=== PATIENT | female | born 1995 | race American Indian/Alaskan Native ===

== ENCOUNTER 2017-08-30 16:18 | Emergency (ER) | payer MEDICAID, OTHER ==
[2017-08-30] MEDS ORDERED: Sodium Chloride 0.9% 1,000 ML IV STA (16:54)
--- NOTE | 2017-08-30 17:01 | ED PDOC ---
Arrival/HPI - General Time Seen by Provider: 08/30/17 16:47 Historian: Patient - History of Present Illness Narrative History of Present Illness (Text): 08/30/17 16:54 22yo female with PMHx of Asthma who present with intermittent crampy suprapubic abdominal pain with associated nausea and nonbloody/bilious vomiting x 4, since this morning. States her monthly period started 3days ago and she usually gets this pain intermittently with her period. She denies diarrhea, constipation, hematemesis, urinary symptoms, fever, chills, back pain. Past Medical History - Provider Review Nursing Documentation Reviewed: Yes - Psychiatric Hx Substance Use: No - Surgical History Hx Orthopedic Surgery: Yes (left knee) Family/Social History - Physician Review Nursing Documentation Reviewed: Yes Family/Social History: Unknown Family HX Smoking Status: Light Smoker < 10 Cigarettes Daily Hx Alcohol Use: Yes Hx Substance Use: No Allergies/Home Meds Allergies/Adverse Reactions: Allergies No Known Allergies Allergy (Verified 08/30/17 16:53) Review of Systems - Physician Review All systems were reviewed & negative as marked: Yes - Review of Systems Constitutional: Normal Eyes: Normal ENT: Normal Respiratory: Normal Cardiovascular: Normal Gastrointestinal: Abdominal Pain, Nausea, Vomiting. absent: Constipation, Diarrhea, Hematochezia, Hematemesis Genitourinary Female: Normal Musculoskeletal: Normal Skin: Normal Neurological: Normal Endocrine: Normal Hemo/Lymphatic: Normal Psychiatric: Normal Physical Exam Vital Signs Reviewed: Yes Vital Signs Temp Pulse Resp BP Pulse Ox 08/30/17 18:48 98.5 F 70 18 112/74 100 08/30/17 16:46 98.7 F 72 18 113/75 99 Temperature: Afebrile Blood Pressure: Normal Pulse: Regular Respiratory Rate: Normal Appearance: Positive for: Well-Appearing, Non-Toxic, Comfortable Pain Distress: None Mental Status: Positive for: Alert and Oriented X 3 - Systems Exam Head: Present: Atraumatic, Normocephalic Pupils: Present: PERRL Extroacular Muscles: Present: EOMI Conjunctiva: Present: Normal Mouth: Present: Moist Mucous Membranes Neck: Present: Normal Range of Motion Respiratory/Chest: Present: Clear to Auscultation, Good Air Exchange. No: Respiratory Distress, Accessory Muscle Use Cardiovascular: Present: Regular Rate and Rhythm, Normal S1, S2. No: Murmurs Abdomen: Present: Other (Soft). No: Tenderness, Distention, Peritoneal Signs, Rebound, Guarding, McBurney's Point Tender, Rovsing's Sign Present Back: Present: Normal Inspection Upper Extremity: Present: Normal Inspection. No: Cyanosis, Edema Lower Extremity: Present: Normal Inspection. No: Edema Neurological: Present: GCS=15, CN II-XII Intact, Speech Normal Skin: Present: Warm, Dry, Normal Color. No: Rashes Psychiatric: Present: Alert, Oriented x 3, Normal Insight, Normal Concentration Medical Decision Making ED Course and Treatment: 08/30/17 19:31 PT was comfortable in ED. Lab was unremarkable. She is currently menstruating accounting for the large blood in her UA. Result was DW the pt and she was DC home with Zofran/Ibuprofen - Lab Interpretations Lab Results: 08/30/17 17:09 08/30/17 17:09 Lab Results 08/30/17 17:10: Urine Color Yellow, Urine Appearance Turbid, Urine pH 8.0, Ur Specific Simms 1.025, Urine Protein Trace H, Urine Glucose (UA) Negative, Urine Ketones Trace H, Urine Blood Large H, Urine Nitrate Negative, Urine Bilirubin Negative, Urine Urobilinogen 0.2, Ur Leukocyte Esterase Negative, Urine RBC Tntc, Urine WBC 0 - 2, Ur Epithelial Cells 3 - 4, Urine Bacteria Trace 08/30/17 17:09: Sodium 140, Potassium 3.9, Chloride 106, Carbon Dioxide 25, Anion Gap 14, BUN 12, Creatinine 0.6 L, Est GFR ( Amer) > 60, Est GFR ( Non-Af Amer) > 60, Random Glucose 89, Calcium 10.1, Total Bilirubin 1.2, AST 26 , ALT 21, Alkaline Phosphatase 65, Total Protein 8.1, Albumin 4.7, Globulin 3.4 , Albumin/Globulin Ratio 1.4, Lipase 17 L 08/30/17 17:09: PT 13.3 H, INR 1.16 H, APTT 28.7 08/30/17 17:09: WBC 7.8, RBC 4.75, Hgb 10.7 L, Hct 33.4 L, MCV 70.3 L, MCH 22.5 L, MCHC 32.0, RDW 15.2 H, Plt Count 344, MPV 10.2, Gran % 83.8 H, Lymph % (Auto ) 11.7 L, Hays % (Auto) 4.0, Eos % (Auto) 0.4 L, Baso % (Auto) 0.1, Gran # 6.49 , Lymph # (Auto) 0.9 L, Hays # (Auto) 0.3, Eos # (Auto) 0.0, Baso # (Auto) 0.01 - Medication Orders Current Medication Orders: Discontinued Medications Famotidine (Pepcid) 20 mg IVP STAT STA Stop: 08/30/17 16:55 Last Admin: 08/30/17 17:11 Dose: 20 mg IVP Administration Document 08/30/17 17:11 OCS (Rec: 08/30/17 17:11 [id number] Charges for Administration # of IVP Administrations 1 Sodium Chloride (Sodium Chloride 0.9%) 1,000 mls @ 1,000 mls/hr IV .Q1H STA Stop: 08/30/17 17:53 Last Admin: 08/30/17 17:10 Dose: 1,000 mls/hr eMAR Start Stop Document 08/30/17 17:10 OCS (Rec: 08/30/17 17:11 [id number][facility] Intravenous Solution Start Date 08/30/17 Start Time 17:10 End Date 08/30/17 End time 18:10 Total Infusion Time 60 Ketorolac Tromethamine (Toradol) 30 mg IVP STAT STA Stop: 08/30/17 16:55 Last Admin: 08/30/17 17:11 Dose: 30 mg MAR Pain Assessment Document 08/30/17 17:11 OCS (Rec: 08/30/17 17:11 [id number][facility] Pain Reassessment Is this a pain reassessment? No Sleep Is patient sleeping during reassessment? No Presence of Pain Presence of Pain Yes Pain Scale Used Pain Scale Used Numeric Location Left, Right or Bilateral Bilateral Upper or Lower Lower Pain Location Body Site Abdomen Description Description Intermittent Intensity of Pain at present 10 Pain Behavior Irritability Aggravating Factors ADL's IVP Administration Document 08/30/17 17:11 OCS (Rec: 08/30/17 17:11 [id number]) Charges for Administration # of IVP Administrations 1 Ondansetron HCl (Zofran Inj) 4 mg IVP STAT STA Stop: 08/30/17 16:55 Last Admin: 08/30/17 17:11 Dose: 4 mg IVP Administration Document 08/30/17 17:11 OCS (Rec: 08/30/17 17:11 OCS [id number]) Charges for Administration # of IVP Administrations 1 Disposition/Present on Arrival - Present on Arrival Any Indicators Present on Arrival: No History of DVT/PE: No History of Uncontrolled Diabetes: No Urinary Catheter: No History Surgical Site Infection Following: None - Disposition Have Diagnosis and Disposition been Completed?: Yes Diagnosis: Dysmenorrhea, Vomiting Disposition: HOME/ ROUTINE Disposition Time: 18:10 Patient Plan: Discharge Condition: STABLE Discharge Instructions (ExitCare): Nausea and Vomiting, Adult, Menstrual Cramps (DC) Additional Instructions: Follow up with your doctor Return to ED for any new or worsening symptoms Prescriptions: Ibuprofen [Motrin Tab] 600 mg PO Q6 #15 tab Ondansetron ODT [Zofran ODT] 4 mg PO Q6 #7 odt Referrals: PCP,NO [Primary Care Provider] - Follow up with primary [facility] [place] - Follow up with primary Forms: [employer] (Djiboutian)
[2017-08-30 17:29] LABS: BASO # 0.01 K/mm3 (0.0-2.0); BASO % 0.1 % (0.0-3.0); EOS % 0.4 % (1.5-5.0); GRAN # 6.49 (1.4-6.5); GRAN % 83.8 % (50.0-68.0); HEMOGLOBIN 10.7 g/dL (12.0-16.0); LYMPH # 0.9 (1.2-3.4); LYMPH % 11.7 % (22.0-35.0); MEAN CELL VOLUME 70.3 fl (80.0-105.0); MEAN CORPUSCULAR HEMOGLOBIN 22.5 pg (25.0-35.0); MEAN PLATELET VOLUME 10.2 fl (7.0-11.0); MONO # 0.3 (0.1-0.6); RBC 4.75 10^6/uL (3.5-6.1); RED CELL DISTRIBUTION WIDTH 15.2 % (11.5-14.5); WHITE BLOOD COUNT 7.8 10^3/ul (4.5-11.0)
[2017-08-30 17:36] LABS: INR 1.16 (0.93-1.08); PARTIAL THROMBOPLASTIN TIME 28.7 Seconds (25.1-36.5); PROTHROMBIN TIME 13.3 SECONDS (9.4-12.5)
[2017-08-30 17:43] LABS: ALB/GLOB RATIO 1.4 (1.1-1.8); ALBUMIN 4.7 g/dL (3.0-4.8); ALT/SGPT 21 U/L (7-56); AST/SGOT 26 U/L (14-36); BLOOD UREA NITROGEN 12 mg/dL (7-21); CALCIUM 10.1 mg/dL (8.4-10.5); GFR AFRICAN-AMERICAN > 60; GFR NON-AFRICAN AMERICAN > 60; LIPASE 17 U/L (23-300)
[2017-08-30 17:47] VITALS: RESP 18; BMI 19.3
[2017-08-30 18:16] LABS: URINE BILIRUBIN NEGATIVE (NEGATIVE); URINE BLOOD LARGE (NEGATIVE); URINE GLUCOSE (UA) NEGATIVE (NEGATIVE); URINE LEUKOCYTE ESTERASE NEGATIVE Leu/uL (NEGATIVE); URINE PROTEIN TRACE mg/dL (<30 mg/dL); URINE UROBILINOGEN 0.2 E.U./dL (<1 E.U./dL)
[2017-08-30 18:20] LABS: URINE APPEARANCE TURBID (CLEAR); URINE BACTERIA TRACE (NEG); URINE COLOR YELLOW (YELLOW); URINE RBC TNTC /hpf (0-2); URINE WBC 0 - 2 /hpf (0-6)
[2017-08-30 18:48] VITALS: BP 112/74; PULSE 70; TEMP 98.5; O2SAT 100
== END 2017-08-30 18:47 | disposition home or self-care (01) ==
LOC: ED 16:18
DX: N94.6 Dysmenorrhea, unspecified (principal); R11.10 Vomiting, unspecified; F17.210 Nicotine dependence, cigarettes, uncomplicated
CPT/HCPCS: 80053; 81001; 83690; 85025; 85610; 85730; 96361; 96374; 96375; 99283; J1885; J2405; J7040